=== PATIENT | male | born 1970 | race Caucasian/White ===

== ENCOUNTER 2023-04-01 21:30 | Emergency (ER) | payer OTHER, SELFPAY ==
[2023-04-01 21:32] VITALS: BP 126/74
--- NOTE | 2023-04-01 23:40 | ED.SKININJ ---
HPI-Injury
General
Chief Complaint: Bite
Source: patient
Exam Limitations: none
Time Seen by Provider: 04/01/23 23:32
Travel History
Have you had any contact with someone who has COVID-19?: No
Do you have any symptoms of coronavirus? Fever > 100 degrees, chills, cough, shortness of breath, sore throat, loss of taste or smell, muscle aches, or headache?: No
History of Present Illness-Injury
Is this injury a work related problem?: No
Is pt an associate of [facility]?: No
Initial Injury comments:
See MDM
Past History
Past History
ED Past Medical History: Asthma and Other (Anxiety, depression, schizophrenia, methamphetamine abuse)
ED Past Surgical History: None
Social History
Tobacco: Smoker
Alcohol: Occasional
Drug: Other (Methamphetamines)
Personal: Single
Living: with roommate
Employment: Employed
Phy Exam
Physical Exam
Physical Exam:
See MDM
Course
Orders/Labs/Results
Orders:
Orders
04/01/23 21:39
CR Hand - Right Min 3 Views Urgent
Comment:
Reason For Exam: dog bite
04/01/23 23:39
Amoxicillin 875 mg/Clav 125 mg [Augmentin 875 mg/125 mg] 1 tablet PO NOW STA
Oxycodone/Acetaminophen [Percocet 5/325] 1 tablet PO NOW STA
Tetanus/Diphth/Acelpertussis [Adacel] 0.5 ml IM .ONCE ONE
Vital Signs
Initial and Last Documented VS:
Initial Vital Signs
Temp Pulse Resp BP Pulse Ox
98.3 F 63 20 126/74 93
04/01/23 21:32 04/01/23 21:32 04/01/23 21:32 04/01/23 21:32 04/01/23 21:32
Last Documented Vital Signs
Temp Pulse Resp BP Pulse Ox
98.3 F 63 20 126/74 93
04/01/23 21:32 04/01/23 21:32 04/01/23 21:32 04/01/23 21:32 04/01/23 21:32
MDM/Problems Addressed
Differential Diagnosis Includes:
HPI and MDM Narrative:
52-year-old male presenting with right hand injury. Patient states a stray dog started to attack his dog so he got involved. The stray dog bit his right hand. Patient states his tetanus is not up-to-date. Although this dog is a stray dog, the
patient believes that this is a neighbors dog.
Patient states his hand surgeon friend indicated no stitches. I discussed with patient that he has a gaping wound to his right palm and that he should at least get some stitches to approximate the wound. Patient understands my rationale but opted
for no stitches. Will update his tetanus. We discussed these prophylaxis. Patient states he will keep an eye on this dog and try to obtain vaccine records. We discussed that if he cannot figure this out that he should probably start rabies
prophylaxis
Physical exam
General: Well appearing and non-toxic
HEENT: protecting airway
Neck: appears supple
CV: No evidence of cyanosis
Resp: No accessory muscle use
Abd: Non-distended
Extremities: Large laceration approximately 5 cm in length to palmar aspect of right thenar eminence. Pain with extension to right second and third finger. Extremity otherwise neurovascularly intact. Several other small superficial to the dorsal
aspect of his hand
Neuro: alert
Psych: Normal affect
Skin: Intact
Problems Addressed including Acute and Chronic Conditions affecting care:
1. Hand injury
Acuity: acute
Prognosis: unstable
Details: Patient opted for no stitches. Will start Augmentin. Tetanus updated. Patient states he will follow-up with his hand surgeon friend, Dr. Estrada. Given the concern for flexor tendon injury of his second and third finger, patient placed
in splint
Updates
Differential Diagnosis (but not limited to): Laceration, fracture, tendon injury
Drug therapy (if applicable): OTC meds, please see d/c instruction regarding Rx drugs
Amount and/or Complexity of Data Reviewed
Clinical info obtained from: Patient
External data reviewed: N/A
Labs I independently reviewed (but not limited to): N/A
Radiology: X-ray independently reviewed: No fracture noted on hand x-ray
Pulse Ox: not hypoxic
EKG independently reviewed: N/A
Grant Writer: N/A
Critical Care: N/A
Risk of Complication:
Social Determinants of health: Good social support
Discussed with other providers: N/A
Escalation of Care includes Admit/Obs: After being observed in the Emergency Department, pt stable for discharge.
Occasional wrong word or 'sound a like' substitutions may have occurred due to the inherent limitations of voice recognition software. Read the chart carefully and recognize, using context, where substitutions have occurred.
*Critical Care Note
Total Time (30-74mins, 75-104mins- exclusive of procedures): Not Applicable
ED Attending Note
-
Portions of this chart may have been created with voice recognition software.� Occasional wrong word or��sound alike� substitutions may have occurred due to the inherent limitations of voice recognition software.
Discharge Plan
Departure
Patient Disposition: Home (Routine Discharge)
Date of Disposition: 04/01/23
Time of Disposition: 23:48
Patient with high blood pressure during this ER visit?: No
Discharge Problem:
Dog bite
Instructions: Animal Bites (DC)
Prescriptions:
New
diclofenac potassium 50 mg tablet
50 mg PO BID Qty: 20 0RF
amoxicillin-pot clavulanate 875-125 mg tablet
1 tab PO BID Qty: 14 0RF
No Action
ibuprofen 200 MG tablet
600 mg PO Q6HPRN PRN (Reason: pain/headache)
multivitamin with folic acid [Tab-A-Lindsay] 1 TABLET tablet
1 tab PO DAILY
nirmatrelvir-ritonavir [Paxlovid] 300 MG/100 MG tablet
1 dose PO DIRECTED Qty: 30 0RF
Rx Instructions:
AM - Take all 3 tabs at once PM - Take all 3 tabs at once for 5 days.
Referrals:
Doni Estrada MD [Active] -
Patricia Lopez DO [Family Provider] -
Activity Restrictions/Additional Instructions:
As we discussed, there is a concern for damage to the ligaments in your index and middle finger. Please use the splint for comfort and to avoid any further injury. Please call Dr. Estrada's office for follow-up.
Watch for signs of infection: fever over 100.5', increasing pain, red streaks around wound, swelling, or increasing drainage of pus. If any of these happen, return to ED promptly. Make sure that you take all your antibiotics as directed and finish
your prescription even if you feel better before the bottle is empty
If you cannot track down the vaccine records of the dog or if you notice the dog acting abnormally, please return for rabies vaccine.
Interventions
Interventions:
*Risk Screen - Suicide Last Done: 04/01/23 21:32
*General Assessment Last Done: 04/01/23 21:32
ED-Skin Assessment Last Done: 04/01/23 22:33
[2023-04-01] MEDS: ADACEL 0.5 ML IM (23:45)
[2023-04-01] MEDS: AUGMENTIN 875 MG/125 MG 1 TABLET PO (23:45)
[2023-04-01] MEDS: PERCOCET 5/325 1 TABLET PO (23:48)
[2023-04-02 00:05] VITALS: BP 124/88
[2023-04-02 00:28] VITALS: BP 124/88
== END 2023-04-02 00:29 | disposition home or self-care (01) ==
LOC: EMR 21:30
PROVIDERS: EMERGENCY PHYSICIAN Student in an Organized Health Care Education/Training Program; FAMILY PHYSICIAN Family Medicine
DX: S61.451A Open bite of right hand, initial encounter (principal); W54.0XXA Bitten by dog, initial encounter; Z23 Encounter for immunization; J45.909 Unspecified asthma, uncomplicated; F41.8 Other specified anxiety disorders; F20.9 Schizophrenia, unspecified; F17.200 Nicotine dependence, unspecified, uncomplicated
CPT/HCPCS: 99283; 90471; 73130; 90715

== ENCOUNTER 2024-08-12 09:03 | Emergency (ER) | payer BC, SELFPAY ==
[2024-08-12 09:17] VITALS: BP 147/99
[2024-08-12 12:30] VITALS: BP 123/90
--- NOTE | 2024-08-12 12:46 | ED.GENMED ---
History of Present Illness
General
Chief Complaint: Back Pain
Source: patient
Exam Limitations: none
Time Seen by Provider: 08/12/24 10:46
Nursing documentation reviewed up to this point in time: agreed with
History of Present Illness
History of Present Illness:
Patient is a 54-year-old man who reports that he suffered a work-related injury and fell off of a ladder about 20 feet up about 5 days ago. Patient was evaluated in outside hospital and diagnosed with a right clavicular fracture, 5 right-sided rib
fractures and a right wrist fracture. Patient reports that since the fall, he has had achiness in the middle of his back. He denies weakness and numbness of his legs and arms. He reports he was given pain medication which is helping with the back
pain. He denies cough, shortness of breath or any difficulty breathing. He reports he has been using the spirometer several times a day. He denies leg pain and leg swelling. He denies a history of PE and DVT. Additionally, patient is primarily
here because he reports that he slipped and fell on a rug in his kitchen this morning, hitting the right side of his face. He denied loss of consciousness. He denies headache, vision changes, nausea and vomiting. He denies any drug and alcohol
use. He denies neck pain. Patient has a mild abrasion in his right eyebrow area. He denies double vision. He reports they gave him a tetanus shot 4 days ago.
Past History
Past History
ED Past Medical History: Asthma, Psychiatric and Other (Anxiety, depression, schizophrenia, methamphetamine abuse)
ED Past Surgical History: Other
Social History
Tobacco: Smoker
Alcohol: Occasional
Drug: Other (Methamphetamines)
Personal: Single
Living: with roommate
Employment: Employed
Family History
Family History: Other
Review of Systems
Review of Systems
Allergies reviewed?: Yes
All Other Systems: ROS reviewed and negative except as documented in HPI and ROS
Constitutional: Reports no symptoms
EENT: Reports no symptoms
Respiratory: Reports no symptoms
Cardiac: Reports no symptoms
ABD/GI: Reports no symptoms
: Reports no symptoms
Musculoskeletal: Reports back pain and other (Right-sided chest wall pain, improved since injury 5 days ago)
Skin: Reports other (Abrasion right eyebrow area)
Neurological: Reports no symptoms
Endocrine: Reports no symptoms
Hematologic/Lymphatic: Reports no symptoms
Psychiatric: Reports no symptoms
Phy Exam
Physical Exam
Physical Exam:
Physical Exam
General: no apparent distress, not acutely ill. Patient is conversational, smiling. Mild swelling right superior orbital area with overlying mild abrasion
Neck: supple. No C-spine tenderness.
Heart: s1/s2 regular rate and rhythm, no murmur. Mild right clavicular and right sided chest wall tenderness which patient states is improved since the fall 5 days ago. No midline cervical, thoracic or lumbar spine
tenderness
Lungs: no acute respiratory distress. clear bilaterally
Abdomen: Soft, nontender
Neuro: alert and oriented. no focal neurological deficits. PERRL. Extraocular muscles intact. 5 out of 5 strength in all extremities. Gait is steady
Skin: Small superficial abrasion right eyebrow area
Psychiatric: well kept. interactive and cooperative
Extremities: Nontender upper and lower extremities except for splint on right wrist. Nontender pelvis and hips
Course
Orders/Labs/Results
Orders:
Orders
08/12/24 11:19
CT Head W/o Iv Contrast Urgent
Comment:
Reason For Exam: hit head
08/12/24 11:[address] Non Medication Order As Directed
Physician Order: accu check
Vital Signs
Initial and Last Documented VS:
Initial Vital Signs
Temp Pulse Resp BP Pulse Ox
97.6 F 84 18 147/99 97
08/12/24 09:17 08/12/24 09:17 08/12/24 09:17 08/12/24 09:17 08/12/24 09:17
Last Documented Vital Signs
Temp Pulse Resp BP Pulse Ox
97.6 F 76 18 123/90 97
08/12/24 09:17 08/12/24 12:30 08/12/24 12:30 08/12/24 12:30 08/12/24 13:47
MDM/Problems Addressed
Differential Diagnosis Includes:
Subdural hematoma, C-spine injury, closed head injury
MDM/Problems Addressed:
Patient presents after acute slip and fall
Acute Exacerbation and/or Progression of Chronic Illness:
Patient is acutely hypertensive, however, after rechecking blood pressure, blood pressure improved
Acute Exacerbation and/or Progression of Chronic Illness: HTN
*Pulse Oximetry
SaO2: 97
Oxygen Mode of Delivery: Room air
Patient hypoxic: no
Comment: 97% on room air
*EKG
Interpreted by ED Provider?: NA
*Revenue Enforcement Agent Interpretation
Rate: Revenue Enforcement Agent- N/A
*Critical Care Note
Total Time (30-74mins, 75-104mins- exclusive of procedures): Not Applicable
Data Reviewed
Review of Other/Old Records Reveals: Discharge Summary (Discharge summary reviewed from 2007 when patient was evaluated for overdose, agitation and substance abuse)
Source: patient
Further Testing Considered But Not Given:
I consider doing a chest x-ray and thoracic spine x-ray, however, patient has no midline spinal tenderness on exam. His breath sounds are clear and equal and there is no sign of pneumonia. Patient reports that his right-sided chest pain has
improved since the injury so it is doubtful he has a pulmonary contusion or pleural effusion or pneumonia
I irrigated the right eyebrow abrasion with sterile normal saline and patted dry.
ED Attending Note
-
Portions of this chart may have been created with voice recognition software.� Occasional wrong word or��sound alike� substitutions may have occurred due to the inherent limitations of voice recognition software.
Discharge Plan
Departure
Patient Disposition: Home (Routine Discharge)
Date of Disposition: 08/12/24
Time of Disposition: 12:28
Patient with high blood pressure during this ER visit?: Yes
Condition: Good
Covid-19: Not Applicable
Discharge Problem:
Closed head injury, Contusion of face, Abrasion of face
Instructions: Head injury in adults, Abrasions - ED discharge instructions, BLOOD PRESSURE, Contusion
Prescriptions:
No Action
ibuprofen 200 MG tablet
600 mg PO Q6HPRN PRN (Reason: pain/headache)
multivitamin with folic acid [Tab-A-Lindsay] 1 TABLET tablet
1 tab PO DAILY
nirmatrelvir-ritonavir [Paxlovid] 300 MG/100 MG tablet
1 dose PO DIRECTED Qty: 30 0RF
Rx Instructions:
AM - Take all 3 tabs at once PM - Take all 3 tabs at once for 5 days.
diclofenac potassium 50 mg tablet
50 mg PO BID Qty: 20 0RF
amoxicillin-pot clavulanate 875-125 mg tablet
1 tab PO BID Qty: 14 0RF
Referrals:
NONE,* [Family Provider, Internal Medicine]
Activity Restrictions/Additional Instructions:
Return immediately for any severe headache or vomiting.
Return for shortness of breath, fever or cough.
Interventions
Interventions:
*Risk Screen - Suicide Last Done: 08/12/24 09:17
*General Assessment Last Done: 08/12/24 09:17
*Neglect/Abuse Screening Last Done: 08/12/24 12:45
*ED- Fall Risk Assessment Last Done: 08/12/24 12:45
*ED COVID-19 Vaccine History Last Done: 08/12/24 09:17
*Nursing Disposition Last Done: 08/12/24 12:45
ED-Musculoskeletal Assessment Last Done: 08/12/24 13:15
Discharge Date and Time
Discharge Date/Time: 08/12/24 12:45
Print Language: THAI
== END 2024-08-12 12:45 | disposition home or self-care (01) ==
LOC: EMR 09:03
PROVIDERS: EMERGENCY PHYSICIAN Emergency Medicine
DX: S09.90XA Unspecified injury of head, initial encounter (principal); M54.9 Dorsalgia, unspecified; R07.89 Other chest pain; S00.81XA Abrasion of other part of head, initial encounter; S00.83XA Contusion of other part of head, initial encounter; W11.XXXA Fall on and from ladder, initial encounter; Y93.9 Activity, unspecified; Y92.9 Unspecified place or not applicable; Y99.0 Civilian activity done for income or pay; W01.0XXA Fall on same level from slipping, tripping and stumbling without subsequent striking against object, initial encounter; R03.0 Elevated blood-pressure reading, without diagnosis of hypertension; J45.909 Unspecified asthma, uncomplicated; F41.9 Anxiety disorder, unspecified; F32.A Depression, unspecified; R56.9 Unspecified convulsions; E11.9 Type 2 diabetes mellitus without complications; F20.9 Schizophrenia, unspecified; F17.200 Nicotine dependence, unspecified, uncomplicated; F15.11 Other stimulant abuse, in remission; Z79.84 Long term (current) use of oral hypoglycemic drugs
CPT/HCPCS: 99284; 70450